=== PATIENT | female | born 1945 | race Caucasian/White ===

== ENCOUNTER 2019-03-07 05:51 | Day surgery (SDC) | payer MEDICARE ==
[2019-03-07] VITALS (19 sets, daily range): BP systolic 102–161; BP diastolic 55–106
[~2019-03-07] VITALS: Ht 165.1 cm; Wt 74.0 kg
[2019-03-07 06:38] LABS: BASOPHILS # (AUTO) 0.1 X10'3 (0-0.2); BASOPHILS % (AUTO) 0.5 % (0-1); EOSINOPHILS # (AUTO) 0.1 X10'3 (0-0.9); EOSINOPHILS % (AUTO) 0.5 % (0-6); HEMATOCRIT 25.5 % (35.0-45.0); LYMPHOCYTES # (AUTO) 0.9 X10'3 (1.1-4.8); LYMPHOCYTES % (AUTO) 5.6 % (21-51); MEAN CORPUSCULAR HEMOGLOBIN 25.5 PG (27.0-31.0); MEAN CORPUSCULAR HGB CONC 31.3 g/dL (33.0-36.5); MEAN CORPUSCULAR VOLUME 81.3 FL (78-98); MEAN PLATELET VOLUME 7.3 FL (7.4-10.4); MONOCYTES # (AUTO) 1.4 X10'3 (0-0.9); MONOCYTES % (AUTO) 8.8 % (2-12); NEUTROPHILS # (AUTO) 13.2 X10'3 (1.8-7.7); NEUTROPHILS % (AUTO) 84.6 % (42-75); PLATELET COUNT 535 X10'3 (140-440); RED BLOOD COUNT 3.14 X10'6 (4.20-5.60); RED CELL DISTRIBUTION WIDTH 17.9 % (11.5-14.5); WHITE BLOOD COUNT 15.6 X10'3 (4.5-11.0)
[2019-03-07] MEDS ORDERED: phenylephrine 1% Nasal spray (extra-strength) 15 ML bottle **bronch room NS ONE ×2 (06:40→07:31)
[2019-03-07] MEDS ORDERED: LIDOCAINE 4% (40MG/ML) topical solution 50ml **BRONCH ONLY MM ONE (06:40)
[2019-03-07] MEDS ORDERED: lidocaine 2% viscous 15 ML cup ***bronch room only MM ONE ×2 (06:40→07:30)
[2019-03-07] MEDS ORDERED: morphine 10mg/ml inj. IM ONE (06:40)
[2019-03-07] MEDS ORDERED: AMLO10TA PO (07:03)
[2019-03-07] MEDS ORDERED: MULT1TAB74 PO (07:03)
[2019-03-07] MEDS ORDERED: FURO-150 PO (07:03)
[2019-03-07] MEDS ORDERED: ACET-2119 PO (07:03)
[2019-03-07] MEDS ORDERED: LOSA50TA3 PO (07:03)
[2019-03-07] MEDS ORDERED: ASPI-1265 PO (07:03)
[2019-03-07] MEDS ORDERED: FLAX10007 PO (07:03)
[2019-03-07] MEDS ORDERED: LOVA40TA2 PO (07:03)
[2019-03-07] MEDS ORDERED: METF500T20 PO (07:03)
[2019-03-07] MEDS ORDERED: NAPR220T67 PO (07:03)
[2019-03-07 07:27] LABS: ANISOCYTOSIS 1+; LARGE PLATELETS FEW; PLATELET ESTIMATE INCREASED; TOTAL CELLS COUNTED 100
[2019-03-07 07:28] LABS: HYPOCHROMASIA 1+
[2019-03-07] MEDS ORDERED: LIDOCAINE 4% (40MG/ML) topical solution 50ml **BRONCH ONLY ONE (07:30)
[2019-03-07] MEDS ORDERED: midazolam 2 mg/2 ml injection ONE (07:31)
== END 2019-03-07 11:00 | disposition home or self-care (01) ==
LOC: SSTAY O 05:51
PROVIDERS: ATTEND Internal Medicine Pulmonary Disease
DX: R91.8 Other nonspecific abnormal finding of lung field (principal); C34.32 Malignant neoplasm of lower lobe, left bronchus or lung; J98.19 Other pulmonary collapse; F17.210 Nicotine dependence, cigarettes, uncomplicated; I10 Essential (primary) hypertension; E78.5 Hyperlipidemia, unspecified; E11.9 Type 2 diabetes mellitus without complications; Z98.890 Other specified postprocedural states; Z88.0 Allergy status to penicillin; Z79.84 Long term (current) use of oral hypoglycemic drugs; Z79.899 Other long term (current) drug therapy; Z80.1 Family history of malignant neoplasm of trachea, bronchus and lung
CPT/HCPCS: 31623; 31625; 36415; 82378; 82948; 85025; 87070; 94640; 94760; J2250; J2270; 31622; 31628; 76499; 88104; 88108; 88173; 88305; 88341; 88342; 88360